=== PATIENT | female | born 1960 ===

== ENCOUNTER 2021-09-03 05:48 | Day surgery (SDC) | payer OTHER ==
[~2021-09-03 05:48] MED LIST: ATORVASTATIN CA20 MG PO; CLONAZEPAM0.5 MG PO; DITROPAN XL5 MG PO; FAMOTI PO; FLUOXE PO; GABAP PO; LOSARTAN POTASS25 MG PO; OMEPRAZ PO; SYNTHROID50 MCG PO; ZOLPIDEM PO; [UNRECOGNIZED DRUG - OTHER] PO
== END 2021-09-03 16:20 | disposition home or self-care (01) ==
LOC: CIR.AMB 05:48
PROVIDERS: ATTEND Colon & Rectal Surgery
DX: K64.2 Third degree hemorrhoids (principal); Z88.2 Allergy status to sulfonamides; Z20.822 Contact with and (suspected) exposure to COVID-19; I10 Essential (primary) hypertension; I34.1 Nonrheumatic mitral (valve) prolapse; E03.9 Hypothyroidism, unspecified; M51.36 Other intervertebral disc degeneration, lumbar region; K21.9 Gastro-esophageal reflux disease without esophagitis; G43.909 Migraine, unspecified, not intractable, without status migrainosus; G62.9 Polyneuropathy, unspecified